=== PATIENT | male | born 1995 | race Two or more races ===

== ENCOUNTER 2022-09-03 23:52 | Emergency (ER) | payer SELFPAY ==
[~2022-09-03] VITALS: Ht 185.4 cm; Wt 99.5 kg
[2022-09-04] MEDS ORDERED: TETANUS-DIPTH-ACEL PERTUSSIS 0.5ML SYR Tdap IM ONE (01:15)
[2022-09-04 02:38] VITALS: BP 131/78
== END 2022-09-04 03:31 | disposition home or self-care (01) ==
LOC: ER 23:56
DX: S81.812A Laceration without foreign body, left lower leg, initial encounter (principal); W26.9XXA Contact with unspecified sharp object(s), initial encounter; Y93.89 Activity, other specified; Y92.89 Other specified places as the place of occurrence of the external cause; Y99.8 Other external cause status
CPT/HCPCS: 12002; 90471; 90715